=== PATIENT | female | born 1975 | race Caucasian/White ===

== ENCOUNTER 2020-02-07 05:42 | Emergency (ER) | payer BC ==
[2020-02-07] MEDS ORDERED: Sodium Chloride 0.9% 1,000 ML IV ONE (05:48)
[2020-02-07] MEDS ORDERED: HYDROmorphone 1 MG/ML Syringe IVPUSH ONE ×2 (05:56→06:14)
[2020-02-07] MEDS ORDERED: Ondansetron 4 MG/2 ML SDV IVPUSH ONE (05:56)
[2020-02-07] MEDS ORDERED: Iopamidol 612 MG/ML 100 ML Bottle IVPUSH ONE (06:08)
[2020-02-07 06:17] LABS: ANION GAP 17.6 mEq/L (7-13); CHLORIDE,CL 99 mmol/L (98-107); SODIUM,NA 138 mmol/L (136-145)
--- NOTE | 2020-02-07 06:30 | EDM.PDOC ---
ED HPI GENERAL MEDICAL PROBLEM - General Chief Complaint: Gastrointestinal Problem Stated Complaint: BOWEL OBSTR Time Seen by Provider: 02/07/20 06:05 Source of Information: Reports: Patient, RN History Limitations: Reports: No Limitations - History of Present Illness INITIAL COMMENTS - FREE TEXT/NARRATIVE: ED with c/o severe abdominal pain starting around 2 am Nausea no vomiting. Hx gastric bypass and multiple bowel surgeries for "partial obstructions and to remove necrotic bowel sections. Last approximately 4 years ago. Primary surgeon in [place], [place]. Has been seen at [facility] and [place]. Denies fever or chills. Has had less problems with partial obstructions and pain since starting [employer]. Had vomiting on Wednesday and notified PCP and xray done at clinic with no obstruction. Sx resolved until tonight. Tried Prune juice and MOM at 515 since that usually helps. One diarrhea stool [employer], did not relieve pain. . Right Upper Abdomen Pain Score (Numeric/FACES): 10 - Related Data Allergies Allergy/AdvReac Type Severity Reaction Status Date / Time iron Allergy Anaphylactic Verified 02/07/20 05:58 Shock Penicillins Allergy Cannot Verified 02/07/20 05:58 Remember Sulfa (Sulfonamide Allergy Cannot Verified 02/07/20 05:58 Antibiotics) Remember Past Medical History - Past Surgical History GI Surgical History: Reports: Cholecystectomy Other GI Surgeries/Procedures: Exlap. part intestine removed twice. gastric bypass Social & Family History - Tobacco Use Smoking Status *Q: Never Smoker Second Hand Smoke Exposure: No - Caffeine Use Caffeine Use: Reports: Energy Drinks, Soda - Alcohol Use Date of Last Drink: 01/08/20 - Recreational Drug Use Recreational Drug Use: No ED ROS GENERAL - Review of Systems Review Of Systems: See Below ED EXAM, GI/ABD - Physical Exam Exam: See Below Exam Limited By: No Limitations General Appearance: Alert, Moderate Distress Eyes: Bilateral: EOMI Ears: Normal External Exam Nose: Normal Inspection Throat/Mouth: Normal Inspection, Normal Voice Head: Atraumatic, Normocephalic Neck: Normal Inspection Respiratory/Chest: No Respiratory Distress, Lungs Clear Cardiovascular: Normal Peripheral Pulses, Regular Rate, Rhythm GI/Abdominal Exam: Tender (general greater RLQ), Abnormal Bowel Sounds (hypo active) Extremities: Normal Inspection Neurological: Alert, Oriented, Normal Cognition Psychiatric: Normal Affect, Normal Mood Skin Exam: Warm, Dry, Intact Course - Vital Signs Last Recorded V/S: Last Vital Signs Temp 98 F 02/07/20 06:52 Pulse 100 02/07/20 06:52 Resp 19 02/07/20 06:52 BP 118/60 02/07/20 06:52 Pulse Ox 100 02/07/20 06:52 - Orders/Labs/Meds Labs: Laboratory Tests 02/07/20 02/07/20 Range/Units 05:50 05:50 WBC 5.0 (5.0-10.0) 10^3/uL RBC 4.12 L (4.2-5.4) 10^6/uL Hgb 13.4 (12.0-16.0) g/dL Hct 40.4 (37.0-47.0) % MCV 98.1 (80-100) fL MCH 32.5 (27.0-34.0) pg MCHC 33.2 (33.0-35.0) g/dL Plt Count 252 (150-450) 10^3/uL Neut % (Auto) 59.0 (42.2-75.2) % Lymph % (Auto) 32.0 (20.5-50.1) % [place] % (Auto) 8.0 (2-8) % Eos % (Auto) 0.8 L (1.0-3.0) % Baso % (Auto) 0.2 (0.0-1.0) % Sodium 138 (136-145) mmol/L Potassium 3.6 (3.5-5.1) mmol/L Chloride 99 (98-107) mmol/L Carbon Dioxide 25 (21-32) mmol/L Anion Gap 17.6 H (7-13) mEq/L BUN 10 (7-18) mg/dL Creatinine 0.93 (0.55-1.02) mg/dL Est Cr Clr Drug Dosing 63.19 mL/min Estimated GFR (MDRD) > 60 BUN/Creatinine Ratio 10.8 (No establ ref range) Glucose 207 H (74-99) mg/dL Calcium 8.4 L (8.5-10.1) mg/dL Total Bilirubin 0.3 (0.2-1.0) mg/dL AST 24 (15-37) U/L ALT 22 (14-59) U/L Alkaline Phosphatase 86 (46-116) U/L Total Protein 7.3 (6.4-8.2) g/dL Albumin 3.6 (3.4-5.0) g/dL Globulin 3.7 Albumin/Globulin Ratio 1.0 Amylase 63 (25-115) U/L Lipase 113 (73-393) U/L Meds: Medications Discontinued Medications Generic Name Dose Route Start Last Admin Trade Name Billq PRN Reason Stop Dose Admin Hydromorphone HCl 1 mg 02/07/20 05:56 02/07/20 06:06 Dilaudid IVPUSH 02/07/20 05:57 1 mg ONETIME ONE Administration Hydromorphone HCl 1 mg 02/07/20 06:14 02/07/20 06:18 Dilaudid IVPUSH 02/07/20 06:15 1 mg ONETIME ONE Administration Sodium Chloride 1,000 mls @ 999 mls/hr 02/07/20 05:48 02/07/20 05:53 Normal Saline IV 02/07/20 06:48 999 mls/hr .BOLUS ONE Administration Iopamidol 100 ml 02/07/20 06:08 02/07/20 06:29 Isovue-300 (61%) IVPUSH 02/07/20 06:09 100 ml ONETIME ONE Administration Lorazepam 0.5 mg 02/07/20 06:34 02/07/20 06:44 Ativan IVPUSH 02/07/20 06:35 0.5 mg ONETIME ONE Administration Ondansetron HCl 4 mg 02/07/20 05:56 02/07/20 06:04 Zofran IVPUSH 02/07/20 05:57 4 mg ONETIME ONE Administration - Radiology Interpretation Free Text/Narrative:: [facility] Final Radiology Report Call: [phone] assistance Online chat: [email or web address] Name: LUMA MOON Age: 44Years F Date: 02/07/2020 SSN: -- : [id number] Study: CT ABDOMEN/PELVIS W Requesting Physician: GENET HARLEY Images: [id number] Addl Studies: Provided Clinical History: Contrast: With Contrast Medium: Isovue Contrast Amount: 100 mL Contrast Method: RAC Page 1 of 2 PROCEDURE INFORMATION: Exam: CT Abdomen And Pelvis With Contrast Exam date and time: 02/07/2020 6:20 AM Age: 44 years old Clinical indication: Abdominal pain; Prior surgery; Surgery type: HX partial bowel obstruction TECHNIQUE: Imaging protocol: Computed tomography of the abdomen and pelvis with intravenous contrast. Radiation optimization: All CT scans at this facility use at least one of these dose optimization techniques: automated exposure control; mA and/or kV adjustment per patient size (includes targeted exams where dose is matched to clinical indication); or iterative reconstruction. Contrast material: ISOVUE; Contrast volume: 100 ml; Contrast route: RAC; COMPARISON: No relevant prior studies available. FINDINGS: Liver: Normal. No mass. Gallbladder and bile ducts: Cholecystectomy. Pancreas: Normal. No ductal dilation. Spleen: Normal. No splenomegaly. Adrenals: Normal. No mass. Kidneys and ureters: Normal. No hydronephrosis. Stomach and bowel: Postsurgical changes of Radha-en-Y gastric bypass. Fluid- filled prominent but nondilated small bowel loops proximal to the distal Radha limb anastomosis. However, distal small bowel is decompressed. Liquid stool in the RIGHT colon. Appendix: No evidence of appendicitis. Intraperitoneal space: Unremarkable. No free air. No significant fluid collection. Vasculature: Unremarkable. No abdominal aortic aneurysm. LUMA MOON | Final Radiology Report CONFIDENTIALITY STATEMENT This report is intended only for use by the referring physician, and only in accordance with law. If you received this in error, call [phone]. Page 2 of 2 Lymph nodes: Unremarkable. No enlarged lymph nodes. Bladder: Unremarkable as visualized. Reproductive: Unremarkable as visualized. Bones/joints: Unremarkable. No acute fracture. Soft tissues: Unremarkable. IMPRESSION: 1. Postsurgical changes of Radha-en-Y gastric bypass. 2. Fluid-filled prominent but nondilated small bowel loops proximal to the distal Radha limb anastomosis. Distal small bowel is decompressed. Finding could be consistent with ileus/gastroenteritis versus partial/early/developing small bowel obstruction either secondary to anastomotic stricture versus secondary to internal hernia at that site. 3. Liquid stool in the RIGHT colon. Finding can suggest diarrheal disease/ gastroenteritis. Thank you for allowing us to participate in the care of your patient. Dictated and Authenticated by: Anitra Michael MD 02/07/2020 6:42 AM Central Time ([place] & [place]) - Re-Assessments/Exams Free Text/Narrative Re-Assessment/Exam: 02/07/20 07:17 Minimal relief in pain following 2mg Dilaudid, More relaxed, tolerable now following ativan. Refuses ambulance tx, states will will go by private car. Dr Rodriguez accepting . Patient instructed nothing to eat or drink. 02/08/20 03:09 Departure - Departure Time of Disposition: 07:33 Disposition: DC/Tfer to Acute Hospital 02 Condition: Fair Clinical Impression: Partial small bowel obstruction - Discharge Information *PRESCRIPTION DRUG MONITORING PROGRAM REVIEWED*: Yes *COPY OF PRESCRIPTION DRUG MONITORING REPORT IN PATIENT MARIBEL: No Referrals: PCP,None [Primary Care Provider] - Forms: ED Department Discharge Sepsis Event Note - Evaluation Sepsis Screening Result: No Definite Risk - Focused Exam Date Exam was Performed: 02/08/20 Time Exam was Performed: 03:07
[2020-02-07] MEDS ORDERED: LORazepam 2 MG/ML SDV IVPUSH ONE (06:34)
== END 2020-02-07 07:25 ==
LOC: DL.ED 05:42
DX: K56.600 Partial intestinal obstruction, unspecified as to cause (principal); Z88.0 Allergy status to penicillin; Z88.2 Allergy status to sulfonamides
CPT/HCPCS: 36415; 74177; 80053; 82150; 83690; 85025; 96361; 96374; 96375; 99285-25; J1170; J2060; J2405; J7030; Q9967